=== PATIENT | male | born 1995 | race Caucasian/White ===

== ENCOUNTER 2019-12-28 10:15 | Emergency (ER) | payer SELFPAY ==
[~2019-12-28] VITALS: Ht 165.1 cm; Wt 62.1 kg
[2019-12-28 10:21] VITALS: BP 132/83
--- NOTE | 2019-12-28 10:25 | NUR ---
PT. VERBALIZED UNDERSTANDING OF AFTERCARE INSTRUCTIONS.Patient discharged to home in stable condition. Written and verbal after care instructions given. Patient verbalizes understanding of instruction.
== END 2019-12-28 10:26 | disposition home or self-care (01) ==
LOC: ER 10:18
DX: Z00.8 Encounter for other general examination (principal)